=== PATIENT | female | born 1990 | race Caucasian/White ===

== ENCOUNTER 2023-05-07 14:30 | Emergency (ER) | payer OTHER ==
[~2023-05-07] VITALS: Ht 152.4 cm; Wt 65.0 kg
[2023-05-07 14:44] VITALS: O2SAT 99
[2023-05-07] MEDS ORDERED: NEO/5DRO7 RIGHTEYE ×2 (16:13)
[2023-05-07 16:25] VITALS: BP 132/78; PULSE 68; RESP 18; TEMP 97.7
[2023-05-07] MEDS ORDERED: NEOM10DR11 RIGHT EAR (16:35)
== END 2023-05-07 16:45 | disposition home or self-care (01) ==
LOC: ER 14:30
DX: H60.91 Unspecified otitis externa, right ear (principal)
CPT/HCPCS: 99283